=== PATIENT | female | born 1995 | race Caucasian/White ===

== ENCOUNTER → 2021-09-12 | Outpatient (CLI) | payer OTHER ==
[~2021-09-12] MED LIST: COLACE 100MG C100 MG PO; IBUPROFEN600 MG PO
== END ==
LOC: LAB 10:59
DX: Z32.00 Encounter for pregnancy test, result unknown (principal)
CPT/HCPCS: 84702

== ENCOUNTER → 2021-09-14 | Outpatient (CLI) | payer OTHER | LOC: LAB 12:03 | DX: Z32.00 Encounter for pregnancy test, result unknown (principal) | CPT/HCPCS: 36415; 84702 ==

== ENCOUNTER 2022-02-01 12:15 | Outpatient (CLI) | payer OTHER | END 2022-02-01 14:27 | disposition home or self-care (01) | LOC: GENOP 12:15 | PROVIDERS: Obstetrics & Gynecology | DX: O99.891 Other specified diseases and conditions complicating pregnancy (principal); R10.2 Pelvic and perineal pain; M54.9 Dorsalgia, unspecified; O99.512 Diseases of the respiratory system complicating pregnancy, second trimester; J45.909 Unspecified asthma, uncomplicated; O99.332 Smoking (tobacco) complicating pregnancy, second trimester; F17.210 Nicotine dependence, cigarettes, uncomplicated; Z88.1 Allergy status to other antibiotic agents; Z88.0 Allergy status to penicillin; Z3A.24 24 weeks gestation of pregnancy | CPT/HCPCS: 80307; 81001; 82731; G0463 ==